=== PATIENT | male | born 1955 | race Caucasian/White ===

== ENCOUNTER → 2017-08-22 | Outpatient (CLI) | payer MEDICARE ==
[~2017-08-22] MED LIST: CYMBALTA60 MG PO; LEVOTHYROXIN0.025 MG PO; LYRICA 75 MG CA75 MG PO; NAPROSYN500 MG PO; TRAMADOL 50 MG50 MG PO; TRAZODONE HCL50 MG PO; VITAMIN D1000 UNI1 PO; ZANAFLEX4 MG PO
== END ==
LOC: M.MRI 08-06 13:30
DX: S83.241A Other tear of medial meniscus, current injury, right knee, initial encounter (principal); M17.11 Unilateral primary osteoarthritis, right knee; X58.XXXA Exposure to other specified factors, initial encounter; Y93.89 Activity, other specified; Y92.89 Other specified places as the place of occurrence of the external cause; Y99.8 Other external cause status

== ENCOUNTER → 2018-02-09 | Outpatient (CLI) | payer MEDICARE | LOC: M.WC 08:57 | DX: L89.890 Pressure ulcer of other site, unstageable (principal); M06.9 Rheumatoid arthritis, unspecified; G47.30 Sleep apnea, unspecified; Z85.830 Personal history of malignant neoplasm of bone; Z87.891 Personal history of nicotine dependence ==

== ENCOUNTER → 2018-10-08 | Outpatient (CLI) | payer MEDICARE | LOC: M.CT 12:03 | DX: M17.11 Unilateral primary osteoarthritis, right knee (principal) ==

== ENCOUNTER → 2019-02-01 | Outpatient (CLI) | payer MEDICARE, MEDICAID | LOC: M.MRI 01-20 11:32 | DX: M17.12 Unilateral primary osteoarthritis, left knee (principal); M19.041 Primary osteoarthritis, right hand; L84 Corns and callosities; R60.0 Localized edema; G89.29 Other chronic pain; M54.5 Low back pain; E03.9 Hypothyroidism, unspecified ==

== ENCOUNTER → 2019-07-26 | Outpatient (CLI) | payer MEDICARE, MEDICAID | LOC: M.RAD 10:11 | DX: J92.9 Pleural plaque without asbestos (principal); B34.9 Viral infection, unspecified ==

== ENCOUNTER → 2019-08-13 | Outpatient (CLI) | payer MEDICARE, MEDICAID | LOC: M.CT 10:56 | DX: R91.1 Solitary pulmonary nodule (principal); J98.4 Other disorders of lung ==

== ENCOUNTER 2020-12-27 06:26 | Emergency (ER) | payer MEDICARE, MEDICAID ==
[~2020-12-27] VITALS: Ht 167.6 cm; Wt 101.6 kg
[2020-12-27 07:22] LABS: ABSOLUTE BASOPHILS 0.1 thou/uL (0.0-0.2); ABSOLUTE EOSINOPHILS 0.2 thou/uL (0.0-0.7); ABSOLUTE LYMPHOCYTES 1.8 thou/uL (0.8-5.3); ABSOLUTE MONOCYTES 0.5 thou/uL (0.0-1.2); ABSOLUTE NEUTROPHILS 3.6 thou/uL (1.6-8.1); BASOPHILS 1.3 %; EOSINOPHILS 3.2 %; HEMATOCRIT 44.8 % (42.0-52.0); HEMOGLOBIN 14.8 gm/dL (14.0-18.0); LYMPHOCYTES 28.9 %; MCH 30.1 pg (26.0-34.0); MCV 91.3 fL (80.0-100.0); MONOCYTES 7.7 %; MPV 7.2 fl. (7.2-11.1); NUCLEATED RBCS 0 /100WBC; PLATELET COUNT* 248 thou/uL (150-400); POLYS 58.9 %; RBC 4.91 mil/uL (4.50-6.00); RDW-CV 13.7 % (10.5-14.5); WBC 6.2 thou/uL (4.0-11.0)
[2020-12-27 07:31] LABS: CALCIUM 7.9 mg/dL (8.5-10.1); CREATININE 0.8 mg/dL (0.6-1.3); POTASSIUM 3.2 mmol/L (3.5-5.1)
[2020-12-27 07:43] LABS: ALBUMIN 3.4 g/dL (3.4-5.0); TOTAL BILIRUBIN 0.7 mg/dL (<0.1-1.0); TOTAL PROTEIN 7.6 g/dL (6.4-8.2)
[2020-12-27] MEDS ORDERED: PROAIR HFA8.5 GM INH (08:03)
[2020-12-27] MEDS ORDERED: RAYOS5 MG PO (08:03)
[2020-12-27 08:12] VITALS: BP 176/97
--- NOTE | 2020-12-27 11:27 | EKG ---
[place] [address] ELECTROCARDIOGRAM REPORT Name: CHELSEYLEE ANNABELLA Room: [facility]#: [id number] Admission: 12/27/20 Attend Phys: Discharge: 12/27/20 Date of : 53 Date of Service: 12/27/20 0633 Report #: [id number] THIS REPORT FOR: //name// [facility] ED Test Date: 2020-12-27 Test Time: 06:33:58 Pat Name: LEE BARBOSA Department: Room: Gender: [employer]: [place] : 1955 Requested By: Isiah Chappell Order Number: [id number] Rene MD: Skip Adair Measurements Intervals [place] Rate: 66 P: 57 [place]: 164 QRS: -12 QRSD: 106 T: 39 QT: 411 QTc: 431 Interpretive Statements Sinus rhythm RSR' in V1 or V2, right VCD or RVH No previous ECG available for comparison Electronically Signed On 12-27-2020 11:27:01 CDT by Skip Adair [email or web address] <ELECTRONICALLY SIGNED> By: Skip Adair MD, [facility] 12/27/20 1127 0633 0633 Skip Adair MD, [facility] /EPI
== END 2020-12-27 08:13 | disposition home or self-care (01) ==
LOC: M.ERS 06:26
PROVIDERS: Emergency Medicine
DX: R05 Cough (principal); R42 Dizziness and giddiness

== ENCOUNTER 2021-01-28 03:15 | Emergency (ER) | payer MEDICARE ==
[~2021-01-28] VITALS: Ht 165.1 cm; Wt 93.0 kg
[~2021-01-28 03:15] MED LIST changes: +PROAIR HFA8.5 GM INH; +RAYOS5 MG PO
[2021-01-28] MEDS ORDERED: TRAMADOL 50 MG50 MG PO (03:30)
[2021-01-28 04:47] VITALS: BP 155/74
== END 2021-01-28 04:47 | disposition home or self-care (01) ==
LOC: M.ERS 03:15
DX: H93.12 Tinnitus, left ear (principal)

== ENCOUNTER 2021-04-02 14:29 | Emergency (ER) | payer MEDICARE ==
[~2021-04-02] VITALS: Ht 162.6 cm; Wt 91.3 kg
[2021-04-02] MEDS ORDERED: NEURONTIN 300M300 M2 PO (14:37)
[2021-04-02 14:58] LABS: ABSOLUTE LYMPHOCYTES 0.7 thou/uL (0.8-5.3); ABSOLUTE MONOCYTES 0.3 thou/uL (0.0-1.2); ABSOLUTE NEUTROPHILS 2.6 thou/uL (1.6-8.1); BASOPHILS 0.2 %; EOSINOPHILS 0.1 %; HEMATOCRIT 41.6 % (42.0-52.0); HEMOGLOBIN 13.6 gm/dL (14.0-18.0); LYMPHOCYTES 18.1 %; MCHC 32.8 g/dL (28.0-37.0); MCV 91.4 fL (80.0-100.0); MONOCYTES 8.2 %; MPV 8.3 fl. (7.2-11.1); NUCLEATED RBCS 0 /100WBC; PLATELET COUNT* 127 thou/uL (150-400); POLYS 73.4 %; RBC 4.55 mil/uL (4.50-6.00); RDW-CV 13.3 % (10.5-14.5); WBC 3.6 thou/uL (4.0-11.0)
[2021-04-02 16:03] LABS: CALCIUM 6.9 mg/dL (8.5-10.1); CREATININE 2.2 mg/dL (0.6-1.3); POTASSIUM 3.5 mmol/L (3.5-5.1)
[2021-04-02 16:05] LABS: CK-MB MASS 0.8 ng/mL (<0.5-3.6); TOTAL BILIRUBIN 0.4 mg/dL (<0.1-1.0); TOTAL PROTEIN 6.8 g/dL (6.4-8.2)
[2021-04-02 18:42] VITALS: BP 116/67
--- NOTE | 2021-04-03 10:02 | EKG ---
[place] [address] ELECTROCARDIOGRAM REPORT Name: CHELSEYLEE ANNABELLA Room: [facility]#: [id number] Admission: 04/02/21 Attend Phys: Discharge: 04/02/21 Date of : 53 Date of Service: 04/02/21 1443 Report #: [id number] THIS REPORT FOR: //name// 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
== END 2021-04-02 19:10 | disposition home or self-care (01) ==
LOC: M.ERS 14:29
PROVIDERS: Family Medicine
DX: U07.1 COVID-19 (principal); R55 Syncope and collapse; R53.1 Weakness; Z85.830 Personal history of malignant neoplasm of bone

== ENCOUNTER → 2021-10-15 | Outpatient (CLI) | payer MEDICARE, MEDICAID ==
[~2021-10-15] MED LIST changes: +NEURONTIN 300M300 M2 PO
== END ==
LOC: M.ULTRA 10:07
PROVIDERS: ATTEND Family Medicine
DX: Z13.6 Encounter for screening for cardiovascular disorders (principal); Z87.891 Personal history of nicotine dependence